=== PATIENT | female | born 1930 | race Caucasian/White ===

== ENCOUNTER 2018-02-19 07:39 | Emergency (ER) | payer MEDICARE ==
[~2018-02-19] VITALS: Ht 157.5 cm; Wt 54.4 kg
[~2018-02-19 07:39] MED LIST: ACET500; ALEN70; AMIT10; GABA300T24 PO; GABA400; HYDACE5; HYDACE5325; HYDSUL200; METTREX2.5; OXYACE5T PO; PRED5; PRED5 PO; REMICADE; TETR250; TRAM50 PO; VALA500 PO; [UNRECOGNIZED DRUG - OTHER]
[2018-02-19 08:38] LABS: BASOPHILS ABSOLUTE AUTO 0.03 K/mm3 (0.00-0.23); BASOPHILS PERCENT AUTO 0 % (0-2); EOSINOPHILS ABSOLUTE AUTO 0.03 K/mm3 (0.00-0.68); EOSINOPHILS PERCENT AUTO 0 % (0-6); Hematocrit 39.6 % (33.0-51.0); Hemoglobin 12.6 g/dL (11.5-16.0); IMMATURE GRAN ABSOLUTE AUTO 0.09 K/mm3 (0.00-0.10); IMMATURE GRAN PERCENT AUTO 1 % (0-1); LYMPHOCYTES ABSOLUTE AUTO 0.94 K/mm3 (0.84-5.20); LYMPHOCYTES PERCENT AUTO 7 % (21-46); MONOCYTES ABSOLUTE AUTO 1.14 K/mm3 (0.16-1.47); MONOCYTES PERCENT AUTO 9 % (4-13); Mean Corpuscular HGB 29.8 pg (26.0-34.0); Mean Corpuscular HGB Conc 31.8 g/dL (31.5-36.5); Mean Corpuscular Volume 94 fL (80-100); Mean Platelet Volume 10.2 fL (9.1-12.4); NEUTROPHILS ABSOLUTE AUTO 10.62 K/mm3 (1.96-9.15); NEUTROPHILS PERCENT AUTO 83 % (41-73); Platelet Count 233 K/mm3 (150-400); RDW Coefficient Variation 13.4 % (11.7-14.2); RDW Standard Deviation 46.3 fL (35.1-46.3); Red Blood Cell Count 4.23 M/mm3 (3.80-5.20); White Blood Cell Count 12.85 K/mm3 (4.00-11.30)
[2018-02-19 08:58] LABS: Albumin/Globulin Ratio 0.5 (0.8-1.8); Bilirubin, Total 0.4 mg/dL (0.1-1.0); Bun/Creatinine Ratio 12.6 (12.0-20.0); Calcium, Blood 8.3 mg/dL (8.5-10.1); Creatinine, Blood 0.95 mg/dL (0.40-1.00); Globulin, Blood 5.5 g/dL (2.2-4.0); Potassium, Blood 3.6 mmol/L (3.5-5.5); Total Protein, Blood 8.5 g/dL (6.4-8.2)
[2018-02-19] MEDS ORDERED: Mucinex600 MG PO (09:48)
[2018-02-19] MEDS ORDERED: BENZ100A PO (09:48)
[2018-02-19] MEDS ORDERED: LEVO750 PO (09:48)
[2018-02-20] MEDS ORDERED: XELJANZ5 MG PO (15:57)
[2018-02-20] MEDS ORDERED: ACET325 PO (15:58)
== END 2018-02-19 11:15 | disposition home or self-care (01) ==
LOC: ER 07:39
PROVIDERS: Emergency Medicine
DX: J40 Bronchitis, not specified as acute or chronic (principal); Z88.2 Allergy status to sulfonamides; Z79.52 Long term (current) use of systemic steroids; Z79.899 Other long term (current) drug therapy
CPT/HCPCS: 36415; 71045; 80053; 83605; 85025; 87040; 96360; 96361; 99283; J7030

== ENCOUNTER 2018-02-20 07:25 | Inpatient (IN) | payer MEDICARE ==
[~2018-02-20] VITALS: Ht 157.5 cm; Wt 55.8 kg
[~2018-02-20 07:25] MED LIST changes: +BENZ100A PO; +LEVO750 PO; +Mucinex600 MG PO
[2018-02-20 08:07] LABS: BASOPHILS ABSOLUTE AUTO 0.01 K/mm3 (0.00-0.23); BASOPHILS PERCENT AUTO 0 % (0-2); EOSINOPHILS ABSOLUTE AUTO 0.01 K/mm3 (0.00-0.68); EOSINOPHILS PERCENT AUTO 0 % (0-6); Hematocrit 36.3 % (33.0-51.0); Hemoglobin 11.6 g/dL (11.5-16.0); IMMATURE GRAN ABSOLUTE AUTO 0.06 K/mm3 (0.00-0.10); IMMATURE GRAN PERCENT AUTO 1 % (0-1); LYMPHOCYTES ABSOLUTE AUTO 0.88 K/mm3 (0.84-5.20); LYMPHOCYTES PERCENT AUTO 8 % (21-46); MONOCYTES ABSOLUTE AUTO 0.82 K/mm3 (0.16-1.47); MONOCYTES PERCENT AUTO 8 % (4-13); Mean Corpuscular HGB 29.4 pg (26.0-34.0); Mean Corpuscular Volume 92 fL (80-100); Mean Platelet Volume 10.2 fL (9.1-12.4); NEUTROPHILS ABSOLUTE AUTO 8.68 K/mm3 (1.96-9.15); NEUTROPHILS PERCENT AUTO 83 % (41-73); Platelet Count 200 K/mm3 (150-400); RDW Coefficient Variation 13.4 % (11.7-14.2); RDW Standard Deviation 45.4 fL (35.1-46.3); Red Blood Cell Count 3.94 M/mm3 (3.80-5.20); White Blood Cell Count 10.46 K/mm3 (4.00-11.30)
[2018-02-20 08:36] LABS: Anion Gap 10 mmol/L (6-16); Blood Urea Nitrogen 9 mg/dL (8-24); Bun/Creatinine Ratio 12.2 (12.0-20.0); CO2, Blood 25 mmol/L (21-32); Calcium, Blood 7.9 mg/dL (8.5-10.1); Chloride, Blood 101 mmol/L (98-108); Creatinine, Blood 0.74 mg/dL (0.40-1.00); Glomerular Filtration Rate >60 (60-); Glucose, Blood 106 mg/dL (70-99); Potassium, Blood 3.6 mmol/L (3.5-5.5); Sodium, Blood 136 mmol/L (136-145)
[2018-02-20 10:37] LABS: Influenza A Negative (NEGATIVE); Influenza B Negative (NEGATIVE)
[2018-02-20] MEDS ORDERED: XELJANZ5 MG PO (15:57)
[2018-02-20] MEDS ORDERED: ACET325 PO (15:58)
[2018-02-21 04:54] LABS: Hematocrit 35.1 % (33.0-51.0); Hemoglobin 11.4 g/dL (11.5-16.0); Mean Corpuscular HGB 29.5 pg (26.0-34.0); Mean Corpuscular HGB Conc 32.5 g/dL (31.5-36.5); Mean Corpuscular Volume 91 fL (80-100); Mean Platelet Volume 10.3 fL (9.1-12.4); Platelet Count 188 K/mm3 (150-400); RDW Coefficient Variation 13.3 % (11.7-14.2); RDW Standard Deviation 44.1 fL (35.1-46.3); Red Blood Cell Count 3.87 M/mm3 (3.80-5.20); White Blood Cell Count 8.24 K/mm3 (4.00-11.30)
[2018-02-21 05:18] LABS: Alanine Aminotransfer (ALT/SGP 27 U/L (12-78); Albumin, Blood 2.7 g/dL (3.4-5.0); Albumin/Globulin Ratio 0.5 (0.8-1.8); Alk Phos 39 U/L (50-136); Anion Gap 8 mmol/L (6-16); Aspartate Aminotrans (AST/SGOT 80 U/L (12-37); Bilirubin, Total 0.4 mg/dL (0.1-1.0); Blood Urea Nitrogen 10 mg/dL (8-24); Bun/Creatinine Ratio 15.7 (12.0-20.0); CO2, Blood 25 mmol/L (21-32); Calcium, Blood 7.9 mg/dL (8.5-10.1); Chloride, Blood 103 mmol/L (98-108); Creatinine, Blood 0.64 mg/dL (0.40-1.00); Glomerular Filtration Rate >60 (60-); Glucose, Blood 141 mg/dL (70-99); Potassium, Blood 3.2 mmol/L (3.5-5.5); Sodium, Blood 136 mmol/L (136-145); Total Protein, Blood 7.7 g/dL (6.4-8.2)
[2018-02-21] MEDS ORDERED: AMIT10 PO (16:27)
[2018-02-21] MEDS ORDERED: PRED20 (16:29)
[2018-02-21] MEDS ORDERED: ALBU90OI INH (16:30)
== END 2018-02-21 16:41 | disposition home or self-care (01) | DRG 392 ==
LOC: ER 07:25 → MEDS 10:10 → ENPENDDIS 02-21 15:55 → MEDS 02-21 16:41
PROVIDERS: Emergency Medicine; Student in an Organized Health Care Education/Training Program
DX: A08.4 Viral intestinal infection, unspecified (principal); R06.03 Acute respiratory distress; J20.9 Acute bronchitis, unspecified; M06.9 Rheumatoid arthritis, unspecified
CPT/HCPCS: 36415; 71046; 80048; 80053; 83605; 84145; 85025; 85027; 87040; 87804; 93005; 93010; 94640; 94760; 94762; 96361; 96365; 96366; 96375; 97116; 97161; 97530; 99285; G8978; G8979; J1956; J2405; J2920; J2930; J7030

== ENCOUNTER → 2018-05-09 | Outpatient (CLI) | payer MEDICARE ==
[~2018-05-09] MED LIST changes: +ACET325 PO; +ALBU90OI INH; +AMIT10 PO; +PRED20; +XELJANZ5 MG PO
[2018-05-09 14:46] LABS: Appearance, Urine Clear (Clear); Bilirubin, Urine Neg (Neg); Blood, Urine 1+ (Neg); Color, Urine Yellow (P-Yellow); Glucose Qualitative, Urine Neg (Neg); Ketones, Urine Neg (Neg); Leukocyte Esterase, Urine 1+ (Neg); Nitrite, Urine Neg (Neg); Protein, Urine 1+ (Neg); Urobilinogen, Urine NORM (Normal)
[2018-05-09 16:15] LABS: Bacteria Few /hpf; Squamous Epithelial Cells Few /hpf (Few)
== END ==
LOC: LAB EV 13:47 → LAB SHORT 13:47
PROVIDERS: Physician Assistant
DX: N39.0 Urinary tract infection, site not specified (principal)
CPT/HCPCS: 81001; 87086

== ENCOUNTER 2019-08-10 11:52 | Emergency (ER) | payer MEDICARE ==
[~2019-08-10] VITALS: Ht 152.4 cm; Wt 56.7 kg
[2019-08-10 15:20] LABS: Source, Urine Clean Catch
[2019-08-10 15:24] LABS: Bilirubin, Urine Neg (Neg); Blood, Urine 1+ (Neg); Glucose Qualitative, Urine Neg (Neg); Ketones, Urine Neg (Neg); Leukocyte Esterase, Urine 1+ (Neg); Nitrite, Urine Neg (Neg); Protein, Urine 1+ (Neg); Urobilinogen, Urine NORM (Normal)
[2019-08-10 15:34] LABS: Appearance, Urine Clear (Clear); Color, Urine Yellow (P-Yellow)
[2019-08-10 15:35] LABS: Bacteria Rare /hpf; Squamous Epithelial Cells Rare /hpf (Few)
== END 2019-08-10 16:02 | disposition home or self-care (01) ==
LOC: ER 11:52
PROVIDERS: Physician Assistant
DX: L29.9 Pruritus, unspecified (principal); F03.90 Unspecified dementia, unspecified severity, without behavioral disturbance, psychotic disturbance, mood disturbance, and anxiety; Z88.2 Allergy status to sulfonamides; Z88.5 Allergy status to narcotic agent; Z79.899 Other long term (current) drug therapy; Z87.891 Personal history of nicotine dependence
CPT/HCPCS: 81001; 87086; 90471; 90714; 99283-25

== ENCOUNTER 2019-08-23 14:07 | Emergency (ER) | payer MEDICARE ==
[~2019-08-23] VITALS: Ht 152.4 cm; Wt 54.0 kg
[2019-08-23 15:42] LABS: Source, Urine Clean Catch
[2019-08-23 15:44] LABS: Appearance, Urine Clear (Clear); Bilirubin, Urine Neg (Neg); Blood, Urine 1+ (Neg); Color, Urine Yellow (P-Yellow); Glucose Qualitative, Urine Neg (Neg); Ketones, Urine Neg (Neg); Leukocyte Esterase, Urine Neg (Neg); Nitrite, Urine Neg (Neg); Protein, Urine Neg (Neg); Urobilinogen, Urine NORM (Normal); pH, Urine 6.5 (5.0-8.0)
[2019-08-23 15:57] LABS: Bacteria Few /hpf; Squamous Epithelial Cells Rare /hpf (Few); White Blood Cells, Urine 0-2 /hpf (0-5)
[2019-08-23] MEDS ORDERED: Mupirocin22 GM (18:59)
[2019-08-23] MEDS ORDERED: Cleocin HCl300 MG PO (19:39)
== END 2019-08-23 20:05 | disposition home or self-care (01) ==
LOC: ER 14:07
PROVIDERS: Physician Assistant
DX: F63.3 Trichotillomania (principal); L03.211 Cellulitis of face; F03.90 Unspecified dementia, unspecified severity, without behavioral disturbance, psychotic disturbance, mood disturbance, and anxiety; Z87.891 Personal history of nicotine dependence; Z88.0 Allergy status to penicillin; Z88.2 Allergy status to sulfonamides; Z88.5 Allergy status to narcotic agent; Z79.899 Other long term (current) drug therapy; Z79.891 Long term (current) use of opiate analgesic; Z79.52 Long term (current) use of systemic steroids
CPT/HCPCS: 70450; 81001; 99283-25

== ENCOUNTER 2019-09-22 15:14 | Inpatient (IN) | payer MEDICARE ==
[~2019-09-22] VITALS: Ht 152.4 cm; Wt 52.6 kg
[~2019-09-22 15:14] MED LIST changes: +Cleocin HCl300 MG PO; +Mupirocin22 GM TOP; +PRED1 PO; -PRED20
[2019-09-22 16:09] LABS: BASOPHILS ABSOLUTE AUTO 0.08 K/mm3 (0.00-0.23); BASOPHILS PERCENT AUTO 1 % (0-2); EOSINOPHILS ABSOLUTE AUTO 0.47 K/mm3 (0.00-0.68); EOSINOPHILS PERCENT AUTO 3 % (0-6); Hematocrit 41.9 % (33.0-51.0); Hemoglobin 13.2 g/dL (11.5-16.0); IMMATURE GRAN ABSOLUTE AUTO 0.14 K/mm3 (0.00-0.10); IMMATURE GRAN PERCENT AUTO 1 % (0-1); LYMPHOCYTES ABSOLUTE AUTO 3.63 K/mm3 (0.84-5.20); LYMPHOCYTES PERCENT AUTO 26 % (21-46); MONOCYTES ABSOLUTE AUTO 1.02 K/mm3 (0.16-1.47); MONOCYTES PERCENT AUTO 7 % (4-13); Mean Corpuscular HGB 31.1 pg (26.0-34.0); Mean Corpuscular HGB Conc 31.5 g/dL (31.5-36.5); Mean Corpuscular Volume 99 fL (80-100); Mean Platelet Volume 10.2 fL (9.1-12.4); NEUTROPHILS ABSOLUTE AUTO 8.61 K/mm3 (1.96-9.15); NEUTROPHILS PERCENT AUTO 62 % (41-73); Platelet Count 371 K/mm3 (150-400); RDW Coefficient Variation 12.9 % (11.7-14.2); RDW Standard Deviation 46.5 fL (35.1-46.3); Red Blood Cell Count 4.25 M/mm3 (3.80-5.20); White Blood Cell Count 13.95 K/mm3 (4.00-11.30)
[2019-09-22 16:21] LABS: Alanine Aminotransfer (ALT/SGP 11 U/L (12-78); Albumin, Blood 2.7 g/dL (3.4-5.0); Albumin/Globulin Ratio 0.6 (0.8-1.8); Alk Phos 51 U/L (50-136); Anion Gap 8 mmol/L (6-16); Aspartate Aminotrans (AST/SGOT 20 U/L (12-37); Bilirubin, Total 0.3 mg/dL (0.1-1.0); Blood Urea Nitrogen 12 mg/dL (8-24); Bun/Creatinine Ratio 14.4 (12.0-20.0); CO2, Blood 24 mmol/L (21-32); Calcium, Blood 8.5 mg/dL (8.5-10.1); Chloride, Blood 109 mmol/L (98-108); Creatinine, Blood 0.84 mg/dL (0.40-1.00); Globulin, Blood 4.6 g/dL (2.2-4.0); Glomerular Filtration Rate >60 (60-); Glucose, Blood 149 mg/dL (70-99); Potassium, Blood 3.5 mmol/L (3.5-5.5); Sodium, Blood 141 mmol/L (136-145); Total Protein, Blood 7.3 g/dL (6.4-8.2)
[2019-09-22 17:33] LABS: Adenovirus F 40/41 Not Detected (NOT DETECT); Astrovirus Not Detected (NOT DETECT); Campylobacter Sp Not Detected (NOT DETECT); Cryptosporidium Not Detected (NOT DETECT); Cyclospora Cayetanensis Not Detected (NOT DETECT); E. Coli O157 Not Detected (NOT DETECT); Entamoeba Histolytica Not Detected (NOT DETECT); Enteroaggregative E. coli-EAEC Not Detected (NOT DETECT); Enteropathogenic E. coli-EPEC Not Detected (NOT DETECT); Enterotoxigenic E. coli-ETEC Not Detected (NOT DETECT); Giardia Lamblia Not Detected (NOT DETECT); Norovirus GI/GII Not Detected (NOT DETECT); Plesiomonas Shigelloides Not Detected (NOT DETECT); Rotavirus A Not Detected (NOT DETECT); Salmonella Sp Not Detected (NOT DETECT); Sapovirus Not Detected (NOT DETECT); Shiga Toxin-prod E. coli-STEC Not Detected (NOT DETECT); Shigella/Enteroin E. coli-EIEC Not Detected (NOT DETECT); Vibrio Cholerae Not Detected (NOT DETECT); Vibrio Sp Not Detected (NOT DETECT); Yersinia Enterocolitica Not Detected (NOT DETECT)
[2019-09-22] MEDS ORDERED: GABA100 PO (18:39)
--- NOTE | 2019-09-22 20:24 | NUR ---
PATIENT ARRIV ED FROM ER WITH MINIMAL COMPLAINTS OF PAIN. SOME CRAMPING IN LOWER ABDOMEN. A&O X3, DAUGHTER LETY WITH HER MOM ON ADMIT. SISTER СЕРГЕЙ WILL BE WITH MOM STARTING TOMMOROW.
--- NOTE | 2019-09-23 01:30 | NUR ---
SPOKE WITH PATIENT AND DAUGHTER ABOUT C DIFFICILE AND HOW IT IS SPREAD WELL IMPORTANCE OF GOOD HANDWASHING WITH SOAP AND WATER. EXPLAINED THAT HAND SANITIZERS ARE NOT EFFECTIVE FOR CDIFF. EXPLAINED THAT SPORES CAN SURVIVE WEEKS TO MONTHS ON SURFACES BEFORE THEY FIND A HOST. BLEACH IS NEEDED TO KILL SPORES, AND IT WAS SUGGESTED THAT A FAMILY MEMBER COULD CLEAN SURFACES IN HOME TO PREVENT REINFECTION OF PATIENT OR INFECTION OF ELDERLY SPOUSE.
[2019-09-23 04:02] LABS: BASOPHILS ABSOLUTE AUTO 0.07 K/mm3 (0.00-0.23); BASOPHILS PERCENT AUTO 0 % (0-2); EOSINOPHILS ABSOLUTE AUTO 0.48 K/mm3 (0.00-0.68); EOSINOPHILS PERCENT AUTO 3 % (0-6); Hematocrit 37.5 % (33.0-51.0); Hemoglobin 11.9 g/dL (11.5-16.0); IMMATURE GRAN ABSOLUTE AUTO 0.12 K/mm3 (0.00-0.10); IMMATURE GRAN PERCENT AUTO 1 % (0-1); LYMPHOCYTES ABSOLUTE AUTO 2.81 K/mm3 (0.84-5.20); LYMPHOCYTES PERCENT AUTO 17 % (21-46); MONOCYTES PERCENT AUTO 9 % (4-13); Mean Corpuscular HGB Conc 31.7 g/dL (31.5-36.5); Mean Corpuscular Volume 98 fL (80-100); NEUTROPHILS ABSOLUTE AUTO 11.46 K/mm3 (1.96-9.15); NEUTROPHILS PERCENT AUTO 70 % (41-73); RDW Standard Deviation 46.7 fL (35.1-46.3); Red Blood Cell Count 3.84 M/mm3 (3.80-5.20); White Blood Cell Count 16.34 K/mm3 (4.00-11.30)
[2019-09-23 04:04] LABS: Mean Platelet Volume 9.6 fL (9.1-12.4); Platelet Count 290 K/mm3 (150-400)
[2019-09-23 04:18] LABS: Anion Gap 6 mmol/L (6-16); Blood Urea Nitrogen 7 mg/dL (8-24); CO2, Blood 28 mmol/L (21-32); Calcium, Blood 7.8 mg/dL (8.5-10.1); Chloride, Blood 109 mmol/L (98-108); Creatinine, Blood 0.78 mg/dL (0.40-1.00); Glomerular Filtration Rate >60 (60-); Glucose, Blood 94 mg/dL (70-99); Potassium, Blood 3.5 mmol/L (3.5-5.5); Sodium, Blood 143 mmol/L (136-145)
--- NOTE | 2019-09-23 17:18 | NUR ---
SHIFT SUMMARY: PT HAS BEEN ALERT AND ORIENTED TO SELF AND FAMILY TODAY BUT IS CONFUSED AND FORGETFULL. SHE CONTINUES TO HAVE LOOSE STOOL AND HAS BEEN A X 1 ASSIST TO THE BSC FOR TOILETING. IV ABO INFUSED ORDERED. PT USES CALL LIGHT FOR HELP WHEN NEEDED BUT DOES NEED CUEING AND REMINDING OF WHERE SHE IS AND WHY SHE IS HERE. SHE IS RESTING IN BED WITH CALL LIGHT IN REACH.
[2019-09-24 04:45] LABS: BASOPHILS ABSOLUTE AUTO 0.07 K/mm3 (0.00-0.23); BASOPHILS PERCENT AUTO 1 % (0-2); EOSINOPHILS ABSOLUTE AUTO 0.42 K/mm3 (0.00-0.68); EOSINOPHILS PERCENT AUTO 4 % (0-6); Hematocrit 38.3 % (33.0-51.0); Hemoglobin 12.1 g/dL (11.5-16.0); IMMATURE GRAN ABSOLUTE AUTO 0.12 K/mm3 (0.00-0.10); IMMATURE GRAN PERCENT AUTO 1 % (0-1); LYMPHOCYTES ABSOLUTE AUTO 2.75 K/mm3 (0.84-5.20); LYMPHOCYTES PERCENT AUTO 23 % (21-46); MONOCYTES ABSOLUTE AUTO 0.91 K/mm3 (0.16-1.47); MONOCYTES PERCENT AUTO 8 % (4-13); Mean Corpuscular HGB Conc 31.6 g/dL (31.5-36.5); Mean Corpuscular Volume 98 fL (80-100); Mean Platelet Volume 9.7 fL (9.1-12.4); NEUTROPHILS ABSOLUTE AUTO 7.76 K/mm3 (1.96-9.15); NEUTROPHILS PERCENT AUTO 64 % (41-73); Platelet Count 345 K/mm3 (150-400); RDW Coefficient Variation 12.9 % (11.7-14.2); RDW Standard Deviation 46.4 fL (35.1-46.3); White Blood Cell Count 12.03 K/mm3 (4.00-11.30)
[2019-09-24 05:03] LABS: Anion Gap 5 mmol/L (6-16); Blood Urea Nitrogen 9 mg/dL (8-24); CO2, Blood 30 mmol/L (21-32); Calcium, Blood 8.6 mg/dL (8.5-10.1); Chloride, Blood 107 mmol/L (98-108); Glomerular Filtration Rate >60 (60-); Glucose, Blood 102 mg/dL (70-99); Potassium, Blood 3.5 mmol/L (3.5-5.5); Sodium, Blood 142 mmol/L (136-145)
--- NOTE | 2019-09-24 18:29 | NUR ---
PATIENT HAS HAD A DECREASE IN HER STOOL OUTPUT TOWARDS NOON AND FOR THE REST OF THE SHIFT. HER APPETITE HAS ALSO INCREASED TO WHERE SHE IS EATING HER LUNCH AND DINNER. SHE REPORTS FEELING BETTER THAN SHE DID THIS MORNING. CALL LIGHT WITH IN REACH.
--- NOTE | 2019-09-25 04:16 | NUR ---
SHIFT SUMMARY AOX4. LS CLEAR, DENIES SOB. NO C/O NAUSEA OR PAIN. SCABS TO FOREHEAD FROM PT SCRATCHING, SOCK OVER SCABS. CONTACT PRECAUTIONS FOR CDIFF. NUMBER OF LOOSE STOOLS DECREASING. IV IN L WRIST IS SL. BEDALARM. REFUSED BANANA FLAKES. 1 TYLENOL GIVEN @ 0. VSS ON RA. PLAN TO DC TODAY.
[2019-09-25 05:03] LABS: BASOPHILS ABSOLUTE AUTO 0.06 K/mm3 (0.00-0.23); BASOPHILS PERCENT AUTO 1 % (0-2); EOSINOPHILS ABSOLUTE AUTO 0.44 K/mm3 (0.00-0.68); EOSINOPHILS PERCENT AUTO 4 % (0-6); Hematocrit 38.7 % (33.0-51.0); Hemoglobin 12.3 g/dL (11.5-16.0); IMMATURE GRAN ABSOLUTE AUTO 0.14 K/mm3 (0.00-0.10); IMMATURE GRAN PERCENT AUTO 1 % (0-1); LYMPHOCYTES ABSOLUTE AUTO 2.35 K/mm3 (0.84-5.20); LYMPHOCYTES PERCENT AUTO 20 % (21-46); MONOCYTES ABSOLUTE AUTO 1.15 K/mm3 (0.16-1.47); MONOCYTES PERCENT AUTO 10 % (4-13); Mean Corpuscular HGB 30.4 pg (26.0-34.0); Mean Corpuscular HGB Conc 31.8 g/dL (31.5-36.5); Mean Corpuscular Volume 96 fL (80-100); Mean Platelet Volume 9.6 fL (9.1-12.4); NEUTROPHILS ABSOLUTE AUTO 7.94 K/mm3 (1.96-9.15); NEUTROPHILS PERCENT AUTO 66 % (41-73); Platelet Count 340 K/mm3 (150-400); RDW Coefficient Variation 12.7 % (11.7-14.2); RDW Standard Deviation 44.9 fL (35.1-46.3); Red Blood Cell Count 4.05 M/mm3 (3.80-5.20); White Blood Cell Count 12.08 K/mm3 (4.00-11.30)
[2019-09-25 05:21] LABS: Anion Gap 7 mmol/L (6-16); Blood Urea Nitrogen 9 mg/dL (8-24); Bun/Creatinine Ratio 11.1 (12.0-20.0); CO2, Blood 29 mmol/L (21-32); Calcium, Blood 8.3 mg/dL (8.5-10.1); Chloride, Blood 109 mmol/L (98-108); Creatinine, Blood 0.81 mg/dL (0.40-1.00); Glomerular Filtration Rate >60 (60-); Glucose, Blood 97 mg/dL (70-99); Sodium, Blood 145 mmol/L (136-145)
[2019-09-25] MEDS ORDERED: Vancocin HCl125 MG PO (09:59)
--- NOTE | 2019-09-25 13:05 | NUR ---
PT TO DISCHARGE HOME. IV REMOVED, NO SS OF INFECTION NOTED. NURSE WENT OVER DC INSTRUCTIONS WITH PATIENT. NEW MED EDUCATED ON. MEDS FAXED TO PHARMACY. PATIENT BEING TAKEN HOME BY SON. PATIENT TAKEN DOWN IN BY STAFF.
== END 2019-09-25 13:16 | disposition home or self-care (01) | DRG 373 ==
LOC: ER 15:14 → MEDS 18:39
PROVIDERS: Internal Medicine; ADMIT Internal Medicine
DX: A04.72 Enterocolitis due to Clostridium difficile, not specified as recurrent (principal); R54 Age-related physical debility; M06.9 Rheumatoid arthritis, unspecified; G31.84 Mild cognitive impairment of uncertain or unknown etiology; Z88.5 Allergy status to narcotic agent; Z88.0 Allergy status to penicillin; Z88.2 Allergy status to sulfonamides; Z87.891 Personal history of nicotine dependence; Z79.52 Long term (current) use of systemic steroids; Z79.899 Other long term (current) drug therapy
CPT/HCPCS: 0097U; 36415; 74177; 80048; 80053; 85025; 87324; 93005; 93010; 96365-59; 99285-25; A9270; A9270-GY; J7050; J7120; Q9967

== ENCOUNTER 2020-05-31 20:27 | Emergency (ER) | payer MEDICARE ==
[~2020-05-31] VITALS: Ht 147.3 cm; Wt 49.9 kg
[~2020-05-31 20:27] MED LIST changes: +GABA100 PO; +Vancocin HCl125 MG PO
[2020-05-31] MEDS ORDERED: Ativan0.5 MG PO (22:12)
== END 2020-05-31 23:37 | disposition home or self-care (01) ==
LOC: ER 20:27
DX: R44.3 Hallucinations, unspecified (principal); F03.90 Unspecified dementia, unspecified severity, without behavioral disturbance, psychotic disturbance, mood disturbance, and anxiety; Z88.0 Allergy status to penicillin; Z88.2 Allergy status to sulfonamides; Z88.5 Allergy status to narcotic agent; Z79.899 Other long term (current) drug therapy; Z87.891 Personal history of nicotine dependence
CPT/HCPCS: 99284

== ENCOUNTER 2020-10-20 15:05 | Emergency (ER) | payer MEDICARE ==
[~2020-10-20] VITALS: Ht 152.4 cm; Wt 40.8 kg
[~2020-10-20 15:05] MED LIST changes: +Ativan0.5 MG PO
[2020-10-20 15:57] LABS: BASOPHILS ABSOLUTE AUTO 0.05 K/mm3 (0.00-0.23); BASOPHILS PERCENT AUTO 1 % (0-2); EOSINOPHILS ABSOLUTE AUTO 0.38 K/mm3 (0.00-0.68); EOSINOPHILS PERCENT AUTO 4 % (0-6); Hemoglobin 13.5 g/dL (11.5-16.0); IMMATURE GRAN ABSOLUTE AUTO 0.03 K/mm3 (0.00-0.10); IMMATURE GRAN PERCENT AUTO 0 % (0-1); LYMPHOCYTES ABSOLUTE AUTO 2.97 K/mm3 (0.84-5.20); LYMPHOCYTES PERCENT AUTO 28 % (21-46); MONOCYTES ABSOLUTE AUTO 0.89 K/mm3 (0.16-1.47); MONOCYTES PERCENT AUTO 9 % (4-13); Mean Corpuscular HGB 30.5 pg (26.0-34.0); Mean Corpuscular HGB Conc 31.4 g/dL (31.5-36.5); Mean Corpuscular Volume 97 fL (80-100); Mean Platelet Volume 10.4 fL (9.1-12.4); NEUTROPHILS ABSOLUTE AUTO 6.19 K/mm3 (1.96-9.15); NEUTROPHILS PERCENT AUTO 59 % (41-73); Platelet Count 266 K/mm3 (150-400); RDW Coefficient Variation 12.1 % (11.7-14.2); RDW Standard Deviation 43.7 fL (35.1-46.3); Red Blood Cell Count 4.43 M/mm3 (3.80-5.20); White Blood Cell Count 10.51 K/mm3 (4.00-11.30)
[2020-10-20 16:19] LABS: Acetaminophen, Random 14.3 ug/mL (10.0-30.0); Alanine Aminotransfer (ALT/SGP 17 U/L (12-78); Albumin/Globulin Ratio 0.9 (0.8-1.8); Alk Phos 44 U/L (50-136); Anion Gap 5 mmol/L (6-16); Aspartate Aminotrans (AST/SGOT 19 U/L (12-37); Bilirubin, Total 0.4 mg/dL (0.1-1.0); Blood Urea Nitrogen 17 mg/dL (8-24); Bun/Creatinine Ratio 26.1 (12.0-20.0); CO2, Blood 28 mmol/L (21-32); Calcium, Blood 9.6 mg/dL (8.5-10.1); Chloride, Blood 106 mmol/L (98-108); Creatinine, Blood 0.65 mg/dL (0.40-1.00); Ethanol (Alcohol), Blood, Med <3 mg/dL; Globulin, Blood 4.3 g/dL (2.2-4.0); Glomerular Filtration Rate >60 (60-); Glucose, Blood 87 mg/dL (70-99); Salicylate <1.7 mg/dL (2.8-20.0); Sodium, Blood 139 mmol/L (136-145); Total Protein, Blood 8.3 g/dL (6.4-8.2); Troponin I <0.015 ng/mL (0.000-0.040)
[2020-10-20 20:04] LABS: Source, Urine Catheter
[2020-10-20 20:08] LABS: Appearance, Urine Clear (Clear); Bilirubin, Urine Neg (Neg); Blood, Urine 1+ (Neg); Color, Urine Yellow (P-Yellow); Glucose Qualitative, Urine Neg (Neg); Ketones, Urine Neg (Neg); Leukocyte Esterase, Urine 1+ (Neg); Nitrite, Urine Neg (Neg); Protein, Urine Neg (Neg); Specific Gravity, Urine 1.015 (1.003-1.022); Urobilinogen, Urine NORM (Normal)
[2020-10-20 20:18] LABS: Bacteria Few /hpf; Squamous Epithelial Cells Few /hpf (Few); White Blood Cells, Urine 0-2 /hpf (0-5)
[2020-10-20 20:19] LABS: U Amphetamine Screen Not Detected; U Barbituate Screen Not Detected; U Benzodiazapine Screen Not Detected; U Buprenorphine Screen Not Detected; U Cannabinoids Screen Not Detected; U Cocaine Screen Not Detected; U Methadone Screen Not Detected; U Methamphetamine Screen Not Detected; U Opiates Screen Not Detected; U Oxycodone Screen Not Detected; U Phencyclidine Screen Not Detected; U Propoxyphene Screen Not Detected
[2020-10-20] MEDS ORDERED: OLAN2.5 PO (21:29)
[2020-10-20] MEDS ORDERED: Abilify2 MG PO (21:30)
== END 2020-10-20 22:52 | disposition home or self-care (01) ==
LOC: ER 15:05
PROVIDERS: Physician Assistant
DX: F41.9 Anxiety disorder, unspecified (principal); F03.90 Unspecified dementia, unspecified severity, without behavioral disturbance, psychotic disturbance, mood disturbance, and anxiety; Z88.0 Allergy status to penicillin; Z88.2 Allergy status to sulfonamides; Z88.5 Allergy status to narcotic agent; Z79.899 Other long term (current) drug therapy; Z87.891 Personal history of nicotine dependence
CPT/HCPCS: 36415; 80053; 81001; 81025; 84484; 85025; 87086; 93005; 93010; 99283-25; G0480

== ENCOUNTER 2021-01-03 15:38 | Emergency (ER) | payer MEDICARE ==
[~2021-01-03] VITALS: Ht 152.4 cm; Wt 40.8 kg
[~2021-01-03 15:38] MED LIST changes: +Abilify2 MG PO; +OLAN2.5 PO
== END 2021-01-03 18:40 | disposition home or self-care (01) ==
LOC: ER 15:38
DX: S63.502A Unspecified sprain of left wrist, initial encounter (principal); S09.90XA Unspecified injury of head, initial encounter; Z88.0 Allergy status to penicillin; Z91.81 History of falling; Z88.2 Allergy status to sulfonamides; Z88.5 Allergy status to narcotic agent; W01.0XXA Fall on same level from slipping, tripping and stumbling without subsequent striking against object, initial encounter
CPT/HCPCS: 70450; 73110; 99284-25

== ENCOUNTER 2021-07-30 09:04 | Emergency (ER) | payer MEDICARE ==
[~2021-07-30] VITALS: Ht 152.4 cm; Wt 45.4 kg
[2021-07-30 10:15] LABS: Source, Urine Clean Catch
[2021-07-30 10:18] LABS: Albumin, Blood 3.2 g/dL (3.4-5.0); Albumin/Globulin Ratio 0.7 (0.8-1.8); Bilirubin, Total 0.4 mg/dL (0.1-1.0); Bun/Creatinine Ratio 16.2 (12.0-20.0); Calcium, Blood 8.8 mg/dL (8.5-10.1); Creatinine, Blood 0.93 mg/dL (0.40-1.00); Globulin, Blood 4.3 g/dL (2.2-4.0); Potassium, Blood 3.4 mmol/L (3.5-5.5); Total Protein, Blood 7.5 g/dL (6.4-8.2)
[2021-07-30 10:26] LABS: BASOPHILS ABSOLUTE AUTO 0.02 K/mm3 (0.00-0.23); BASOPHILS PERCENT AUTO 0 % (0-2); EOSINOPHILS ABSOLUTE AUTO 0.06 K/mm3 (0.00-0.68); EOSINOPHILS PERCENT AUTO 1 % (0-6); Hematocrit 40.8 % (33.0-51.0); Hemoglobin 13.6 g/dL (11.5-16.0); IMMATURE GRAN ABSOLUTE AUTO 0.09 K/mm3 (0.00-0.10); IMMATURE GRAN PERCENT AUTO 1 % (0-1); LYMPHOCYTES ABSOLUTE AUTO 1.31 K/mm3 (0.84-5.20); LYMPHOCYTES PERCENT AUTO 19 % (21-46); MONOCYTES ABSOLUTE AUTO 0.61 K/mm3 (0.16-1.47); MONOCYTES PERCENT AUTO 9 % (4-13); Mean Corpuscular HGB 30.8 pg (26.0-34.0); Mean Corpuscular HGB Conc 33.3 g/dL (31.5-36.5); Mean Corpuscular Volume 93 fL (80-100); NEUTROPHILS PERCENT AUTO 69 % (41-73); Platelet Count 232 K/mm3 (150-400); RDW Coefficient Variation 12.5 % (11.7-14.2); RDW Standard Deviation 42.8 fL (35.1-46.3); Red Blood Cell Count 4.41 M/mm3 (3.80-5.20); White Blood Cell Count 6.79 K/mm3 (4.00-11.30)
[2021-07-30 10:38] LABS: Bilirubin, Urine Neg (Neg); Blood, Urine 1+ (Neg); Glucose Qualitative, Urine Neg (Neg); Ketones, Urine 2+ (Neg); Leukocyte Esterase, Urine Neg (Neg); Nitrite, Urine Neg (Neg); Protein, Urine 2+ (Neg); Urobilinogen, Urine NORM (Normal)
[2021-07-30 11:12] LABS: Appearance, Urine Clear (Clear); Color, Urine Yellow (P-Yellow)
[2021-07-30 11:15] LABS: Amorphous Light (0-Heavy); Bacteria Rare /hpf; Mucus Mod (0-Heavy); Red Blood Cells, Urine 0-2 /hpf (0-2); Renal Epithelial Rare /hpf (0-Rare); Squamous Epithelial Cells Rare /hpf (Few)
[2021-07-30] MEDS ORDERED: ONDA4ODT MM ×2 (11:49→12:35)
== END 2021-07-30 13:00 | disposition home or self-care (01) ==
LOC: ER 09:04
PROVIDERS: Physician Assistant
DX: U07.1 COVID-19 (principal); Z88.0 Allergy status to penicillin; Z88.2 Allergy status to sulfonamides; Z88.5 Allergy status to narcotic agent; Z79.899 Other long term (current) drug therapy; Z87.891 Personal history of nicotine dependence
CPT/HCPCS: 80053; 81001; 83690; 85025; 93005; 93010; 96374; 99284-25; J2405; J7030; P9612

== ENCOUNTER 2021-07-31 14:53 | Inpatient (IN) | payer MEDICARE ==
[~2021-07-31] VITALS: Ht 152.4 cm; Wt 4.0 kg
[~2021-07-31 14:53] MED LIST changes: +ONDA4ODT MM
[2021-07-31 16:19] LABS: Hemoglobin 12.6 g/dL (11.5-16.0); Mean Corpuscular HGB 30.5 pg (26.0-34.0); Mean Corpuscular HGB Conc 33.2 g/dL (31.5-36.5); Mean Corpuscular Volume 92 fL (80-100); Mean Platelet Volume 9.5 fL (9.1-12.4); Platelet Count 243 K/mm3 (150-400); RDW Coefficient Variation 12.6 % (11.7-14.2); RDW Standard Deviation 42.6 fL (35.1-46.3); Red Blood Cell Count 4.13 M/mm3 (3.80-5.20); White Blood Cell Count 7.99 K/mm3 (4.00-11.30)
[2021-07-31 16:28] LABS: Anion Gap 10 mmol/L (6-16); Blood Urea Nitrogen 12 mg/dL (8-24); Bun/Creatinine Ratio 15.8 (12.0-20.0); CO2, Blood 24 mmol/L (21-32); Calcium, Blood 8.3 mg/dL (8.5-10.1); Chloride, Blood 105 mmol/L (98-108); Creatinine, Blood 0.76 mg/dL (0.40-1.00); Glomerular Filtration Rate >60 (60-); Glucose, Blood 112 mg/dL (70-99); Potassium, Blood 3.6 mmol/L (3.5-5.5); Sodium, Blood 139 mmol/L (136-145)
[2021-07-31 16:44] LABS: BAND PERCENT MAN 1 % (0-8); BASOPHILS PERCENT MAN 0 % (0-2); EOSINOPHILS ABSOLUTE MAN 0.07 K/mm3 (0.00-0.68); EOSINOPHILS PERCENT MAN 1 % (0-6); LYMPHOCYTES ABSOLUTE MAN 0.63 K/mm3 (0.84-5.20); LYMPHOCYTES PERCENT MAN 8 % (21-46); METAMYELOCYTE ABSOLUTE MAN 0.07 K/mm3 (0.00-0.00); METAMYELOCYTE PERCENT MAN 1 % (0-0); MONOCYTES ABSOLUTE MAN 0.71 K/mm3 (0.16-1.47); MONOCYTES PERCENT MAN 9 % (4-13); NEUTROPHILS ABSOLUTE MAN 6.47 K/mm3 (1.96-9.15); SEG NEUTROPHILS PERCENT MAN 80 % (41-73); TOTAL CELLS COUNTED 100
[2021-07-31 19:29] LABS: SARS-Cov-2 (COVID-19) PCR, MMC POSITIVE (NEGATIVE)
--- NOTE | 2021-07-31 20:18 | NUR ---
RECEIVED PT FROM ED, ALERT ANS ORIENTED TO SELF. PT MAKES NO COMPLAINT BUT IS A POOR HISTORIAN. PT REMAINS ON L O2. COUGH NOTED, DIM IN ALL AREAS WITH WHEEZE. PT PROVIDED LUIDS AND IS NOW RESTING. ALARM ON BED AND IN OW POSITION.
--- NOTE | 2021-07-31 23:53 | NUR ---
RECEIVED CALL FROM TELE STATING PT WAS VENTURA AT 56. CHECKED ON PT WHO WAS SLEEPING. PT WOKE UP AND MADE NO COMPLAITS AND NO CHANGE IN LOC. CHECKED WITH FINGER OX AND PT WAS 60 AND ABOVE WITH HR AND 94 WITH O2. WILL CONT TO MONITOR.
[2021-08-01 02:37] LABS: BASOPHILS ABSOLUTE AUTO 0.01 K/mm3 (0.00-0.23); BASOPHILS PERCENT AUTO 0 % (0-2); EOSINOPHILS PERCENT AUTO 0 % (0-6); Hematocrit 38.9 % (33.0-51.0); Mean Corpuscular HGB Conc 33.4 g/dL (31.5-36.5); Mean Corpuscular Volume 93 fL (80-100); Mean Platelet Volume 9.6 fL (9.1-12.4); Platelet Count 221 K/mm3 (150-400); RDW Coefficient Variation 12.7 % (11.7-14.2); RDW Standard Deviation 43.3 fL (35.1-46.3); Red Blood Cell Count 4.19 M/mm3 (3.80-5.20); White Blood Cell Count 5.55 K/mm3 (4.00-11.30)
[2021-08-01 02:43] LABS: IMMATURE GRAN ABSOLUTE AUTO 0.15 K/mm3 (0.00-0.10); IMMATURE GRAN PERCENT AUTO 3 % (0-1); LYMPHOCYTES ABSOLUTE AUTO 0.79 K/mm3 (0.84-5.20); LYMPHOCYTES PERCENT AUTO 14 % (21-46); MONOCYTES ABSOLUTE AUTO 0.23 K/mm3 (0.16-1.47); MONOCYTES PERCENT AUTO 4 % (4-13); NEUTROPHILS ABSOLUTE AUTO 4.37 K/mm3 (1.96-9.15); NEUTROPHILS PERCENT AUTO 79 % (41-73)
[2021-08-01 02:55] LABS: Alanine Aminotransfer (ALT/SGP 19 U/L (12-78); Albumin, Blood 2.7 g/dL (3.4-5.0); Albumin/Globulin Ratio 0.6 (0.8-1.8); Alk Phos 38 U/L (50-136); Anion Gap 7 mmol/L (6-16); Aspartate Aminotrans (AST/SGOT 44 U/L (12-37); Bilirubin, Total 0.2 mg/dL (0.1-1.0); Blood Urea Nitrogen 13 mg/dL (8-24); Bun/Creatinine Ratio 17.6 (12.0-20.0); CO2, Blood 25 mmol/L (21-32); Chloride, Blood 107 mmol/L (98-108); Creatinine, Blood 0.74 mg/dL (0.40-1.00); Globulin, Blood 4.3 g/dL (2.2-4.0); Glomerular Filtration Rate >60 (60-); Glucose, Blood 165 mg/dL (70-99); Potassium, Blood 4.1 mmol/L (3.5-5.5); Sodium, Blood 139 mmol/L (136-145); Troponin I 0.081 ng/mL (0.000-0.040)
--- NOTE | 2021-08-01 10:59 | NUR ---
Echocardiogram completed.
--- NOTE | 2021-08-01 18:27 | NUR ---
PT IS AO TO SELF, PT IS COVID POSITIVE, PT IS INCONTINENT,PT PULLED IV OUT, NEW IV INSERTED IN LEFT AC PT HAS DEMENTIA AND FORGETFUL, PT WORKED WITH PT THIS PM DID VERY WELL PER PHYSICAL THERAPY, GAVE UPDATE TO DAUGHTER COY ON THE PHONE, PT ON 2L VIA NSAL CANNULA. PT IS IN BED, BED IN LOW POSTION, CALL LIGHT WITHIN REACH WILL CONTINUE TO MONITOR.
--- NOTE | 2021-08-02 05:28 | NUR ---
SHIFT SUMMARY PATIENT HAD NO ACUTE CHANGES OBSERVED. AXO X 1-2. ONE ASSIST TO BSC. ON 2L O2 NC. PIV REMAINS INTACT. NEMATOLOGIST REPORTS SR 85 W/PAC. VSS/AFEBRILE. DENIES PAIN, SOB, AND N/V. CALL LIGHT IN REACH. BED IN LOWEST POSITION, WILL CONTINUE TO MONITOR UNTIL DAY SHIFT NURSE ASSUMES CARE.
--- NOTE | 2021-08-02 16:58 | NUR ---
PT AOX1 AND COOPERATIVE OF CARE. PT HAS BEEN MAINTAINING ON 2L NASAL CANULA AND ON BEDREST. PT CAN USE CALL LIGHT APPRORIATELY. PT NEEDS REPOSTIONED EVERY COUPLE HOURS. NO DISTRESS NOTED AT THIS TIME WILL CONTINUE TO MONTIOR.
--- NOTE | 2021-08-03 06:13 | NUR ---
SHIFT SUMMARY NO ACUTE CHANGES THIS SHIFT, NO C/O ANY KIND, SLEPT T/O THE NIGHT & SLEEPING AT THIS TIME, CALL LIGHT IN REACH, WILL CONT TO MONITOR UNTIL REPORT GIVEN TO DAY RN.
[2021-08-03] MEDS ORDERED: AZIT250 PO (13:51)
[2021-08-03] MEDS ORDERED: DEXA6 (13:51)
[2021-08-03] MEDS ORDERED: GUAI600T33 PO (13:52)
[2021-08-03] MEDS ORDERED: VISBIOME 112.51 EACH PO (14:01)
[2021-08-03] MEDS ORDERED: CEFP200 PO (14:04)
--- NOTE | 2021-08-03 14:29 | NUR ---
HOME O2 EVALUATION PATIENT ON 3L O2, NC IN ROOM AT REST- SAT 93. O2 REMOVED SAT 92 AFTER 5 MINUTES. PATIENT AMBULATED WITHOUT O2 SAT 83 AFTER AMBULATION. PATIENT AMBULATED WITH 3L O2 SAT 86 AFTER AMBULATION. PATIENT AMBULATED WITH 4L O2 SAT 86 AFTER AMBULATION. PATIENT AMBULATED WITH 5L O2 SAT 93 AFTER AMBULATION.
--- NOTE | 2021-08-03 15:50 | NUR ---
DISCHARGE NOTE PATIENT DISCHARGED TO HOME [facility]. PATIENT ALERT AND ORIENTED THROUGHOUT THIS SHIFT, SOMETIMES A LITTLE SLOW TO RESPOND. PATIENT UP MULTIPLE TIMES WITH 1 ASSIST. PATIENT UP IN CHAIR FOR MEALS. PATIENT WALKED SEVERAL TIMES IN THE ROOM FOR HOME RESPIRATORY EVAL. PATIENT DRESSED WITH ASSISTANCE. IV REMOVED PRIOR TO DISCHARGE. PATIENT TRANSFERED VIA WHEELCHAIR BY [facility]. PATIENT BELONGINGS WITH PATIENT UPON DISCHARGE.
== END 2021-08-03 15:49 | disposition home health service (06) | DRG 177 ==
LOC: ER 14:53 → MEDS 17:59
PROVIDERS: Student in an Organized Health Care Education/Training Program; ADMIT Internal Medicine
PROC: 8E0ZXY6 Isolation (ICD-10-PCS; principal; 2021-07-31)
PROC: 3E0333Z Introduction of Anti-inflammatory into Peripheral Vein, Percutaneous Approach (ICD-10-PCS; 2021-07-31)
PROC: XW033E5 Introduction of Remdesivir Anti-infective into Peripheral Vein, Percutaneous Approach, New Technology Group 5 (ICD-10-PCS; 2021-07-31)
DX: U07.1 COVID-19 (principal); J15.9 Unspecified bacterial pneumonia; J96.01 Acute respiratory failure with hypoxia; I21.A1 Myocardial infarction type 2; Z66 Do not resuscitate; G30.9 Alzheimer's disease, unspecified; F02.80 Dementia in other diseases classified elsewhere, unspecified severity, without behavioral disturbance, psychotic disturbance, mood disturbance, and anxiety; M06.9 Rheumatoid arthritis, unspecified; Z88.0 Allergy status to penicillin; Z88.2 Allergy status to sulfonamides; Z88.5 Allergy status to narcotic agent; Z79.899 Other long term (current) drug therapy; Z90.710 Acquired absence of both cervix and uterus; Z90.49 Acquired absence of other specified parts of digestive tract; Z87.891 Personal history of nicotine dependence
CPT/HCPCS: 36415; 71045; 80048; 80053; 84145; 84484; 85025; 85379; 86141; 93005; 93010; 93306; 94762; 96365; 96368; 96375; 97110; 97116; 97162; 97530; 99285-25; A9270; J0456; J0696; J1100; J1650; J7050; U0004

== ENCOUNTER 2021-08-05 23:21 | Emergency (ER) | payer MEDICARE ==
[~2021-08-05] VITALS: Ht 154.9 cm; Wt 49.9 kg
[~2021-08-05 23:21] MED LIST changes: +AZIT250 PO; +CEFP200 PO; +DEXA6; +GUAI600T33 PO; +VISBIOME 112.51 EACH PO
== END 2021-08-06 01:30 | disposition home or self-care (01) ==
LOC: ER 23:21
DX: U07.1 COVID-19 (principal); J12.82 Pneumonia due to coronavirus disease 2019; Z87.891 Personal history of nicotine dependence
CPT/HCPCS: 96372; 99284; A9270; J1170

== ENCOUNTER 2021-09-03 19:20 | Inpatient (IN) | payer MEDICARE ==
[~2021-09-03] VITALS: Ht 152.4 cm; Wt 40.7 kg
[2021-09-03] MEDS ORDERED: TIMDOROPSO LEFTEYE (19:42)
[2021-09-03 20:57] LABS: BASOPHILS ABSOLUTE AUTO 0.18 K/mm3 (0.00-0.23); BASOPHILS PERCENT AUTO 1 % (0-2); EOSINOPHILS ABSOLUTE AUTO 0.23 K/mm3 (0.00-0.68); EOSINOPHILS PERCENT AUTO 1 % (0-6); Hematocrit 40.3 % (33.0-51.0); Hemoglobin 12.6 g/dL (11.5-16.0); IMMATURE GRAN ABSOLUTE AUTO 1.06 K/mm3 (0.00-0.10); IMMATURE GRAN PERCENT AUTO 4 % (0-1); LYMPHOCYTES ABSOLUTE AUTO 1.11 K/mm3 (0.84-5.20); LYMPHOCYTES PERCENT AUTO 4 % (21-46); MONOCYTES ABSOLUTE AUTO 1.52 K/mm3 (0.16-1.47); MONOCYTES PERCENT AUTO 6 % (4-13); Mean Corpuscular HGB 30.4 pg (26.0-34.0); Mean Corpuscular HGB Conc 31.3 g/dL (31.5-36.5); Mean Corpuscular Volume 97 fL (80-100); Mean Platelet Volume 10.8 fL (9.1-12.4); NEUTROPHILS PERCENT AUTO 84 % (41-73); Platelet Count 644 K/mm3 (150-400); RDW Coefficient Variation 13.2 % (11.7-14.2); RDW Standard Deviation 47.1 fL (35.1-46.3); Red Blood Cell Count 4.15 M/mm3 (3.80-5.20)
[2021-09-03 21:34] LABS: Anion Gap 11 mmol/L (6-16); Blood Urea Nitrogen 12 mg/dL (8-24); CO2, Blood 25 mmol/L (21-32); Calcium, Blood 8.7 mg/dL (8.5-10.1); Chloride, Blood 102 mmol/L (98-108); Creatinine, Blood 0.55 mg/dL (0.40-1.00); Glomerular Filtration Rate >60 (60-); Glucose, Blood 164 mg/dL (70-99); Potassium, Blood 4.2 mmol/L (3.5-5.5); Sodium, Blood 138 mmol/L (136-145)
[2021-09-04 04:45] LABS: BASOPHILS ABSOLUTE AUTO 0.11 K/mm3 (0.00-0.23); BASOPHILS PERCENT AUTO 1 % (0-2); EOSINOPHILS ABSOLUTE AUTO 0.05 K/mm3 (0.00-0.68); EOSINOPHILS PERCENT AUTO 0 % (0-6); Hematocrit 30.2 % (33.0-51.0); Hemoglobin 9.4 g/dL (11.5-16.0); IMMATURE GRAN ABSOLUTE AUTO 0.87 K/mm3 (0.00-0.10); IMMATURE GRAN PERCENT AUTO 4 % (0-1); LYMPHOCYTES ABSOLUTE AUTO 1.65 K/mm3 (0.84-5.20); LYMPHOCYTES PERCENT AUTO 8 % (21-46); MONOCYTES ABSOLUTE AUTO 2.19 K/mm3 (0.16-1.47); MONOCYTES PERCENT AUTO 10 % (4-13); Mean Corpuscular HGB 30.4 pg (26.0-34.0); Mean Corpuscular HGB Conc 31.1 g/dL (31.5-36.5); Mean Corpuscular Volume 98 fL (80-100); Mean Platelet Volume 10.1 fL (9.1-12.4); NEUTROPHILS ABSOLUTE AUTO 16.83 K/mm3 (1.96-9.15); NEUTROPHILS PERCENT AUTO 78 % (41-73); Platelet Count 395 K/mm3 (150-400); RDW Coefficient Variation 13.3 % (11.7-14.2); RDW Standard Deviation 47.8 fL (35.1-46.3); Red Blood Cell Count 3.09 M/mm3 (3.80-5.20)
[2021-09-04 05:03] LABS: Alanine Aminotransfer (ALT/SGP 9 U/L (12-78); Albumin, Blood 1.3 g/dL (3.4-5.0); Albumin/Globulin Ratio 0.3 (0.8-1.8); Alk Phos 57 U/L (50-136); Anion Gap 8 mmol/L (6-16); Aspartate Aminotrans (AST/SGOT 15 U/L (12-37); Bilirubin, Total 0.3 mg/dL (0.1-1.0); Blood Urea Nitrogen 9 mg/dL (8-24); CO2, Blood 23 mmol/L (21-32); Calcium, Blood 7.7 mg/dL (8.5-10.1); Chloride, Blood 112 mmol/L (98-108); Creatinine, Blood 0.53 mg/dL (0.40-1.00); Globulin, Blood 4.6 g/dL (2.2-4.0); Glomerular Filtration Rate >60 (60-); Glucose, Blood 90 mg/dL (70-99); Potassium, Blood 3.3 mmol/L (3.5-5.5); Sodium, Blood 143 mmol/L (136-145); Total Protein, Blood 5.9 g/dL (6.4-8.2)
[2021-09-04 11:55] LABS: Adenovirus Not Detected (NOT DETECT); Coronavirus 229E Not Detected (NOT DETECT); Coronavirus HKU1 Not Detected (NOT DETECT); Coronavirus NL63 Not Detected (NOT DETECT); Coronavirus OC43 Not Detected (NOT DETECT)
[2021-09-04 11:56] LABS: Bordetella pertussis Not Detected (NOT DETECT); Chlamydophila pneumoniae Not Detected (NOT DETECT); Human Metapneumovirus Not Detected (NOT DETECT); Human Rhinovirus/Enterovirus Not Detected (NOT DETECT); Influenza A/2009-H1 Not Detected (NOT DETECT); Influenza A/H1 Not Detected (NOT DETECT); Influenza A/H3 Not Detected (NOT DETECT); Influenza B Not Detected (NOT DETECT); Mycoplasma pneumoniae Not Detected (NOT DETECT); Parainfluenza Virus 1 Not Detected (NOT DETECT); Parainfluenza Virus 2 Not Detected (NOT DETECT); Parainfluenza Virus 3 Not Detected (NOT DETECT); Parainfluenza Virus 4 Not Detected (NOT DETECT); Respiratory Syncytial Virus Not Detected (NOT DETECT); SARS-Cov-2 (COVID-19), BioFire Detected (NOT DETECT)
--- NOTE | 2021-09-04 15:00 | NUR ---
Summary of events of the day. Multiple case conferences t/o the day with pt's and bedside RN. This afternoon I met with pt's two daughters. [facility] time for ES dementia and significant decline after recovering but not returning to her baseline with a Covid infection two months ago. Pt appears comfortable and in no distress in bed. She is able to swallow and PO meds/antibiotics ordered and planned after d/c from hospital. She was admitted to acute care for sepsis due to pneumonia and has improved. Daughters have been in touch with [facility] where pt resides and they are able to accept pt back today. We were in contact with [facility] hospice to update on plan and request f/u visit to resume hospice per family wishes. raise miner coordinated transport back to [facility]. Medications and s/s management, hospice care and philosophy all reviewed with daughters and did also. Pt may do better with d/c of PO tramadol due to long half life and pt's propensity for frightening delusions and hallucinations with dementia already. I would also recommend change from dilaudid for pain to roxanol prn for pain and dyspnea/air hunger. Daughters report pt had horrible hallucinations and nightmares when dilaudid was given so no one was using it and pt was experiencing significantly more pain. I believe simplifying analgesic regime will improve untoward SE that pt is experiencing. Pt was escalating in her anxiety just prior to d/c and being back in her familiar surroundings with daughters and regular caregivers will help alleviate that. Daughters expressed great appreciation for the care their mom received during her short stay here and were very happy she was able to return home today. They also updated [facility] t/o the day.
[2021-09-04] MEDS ORDERED: LEVOFLOXAC PO (15:26)
[2021-09-04] MEDS ORDERED: MORP20L SL (15:27)
--- NOTE | 2021-09-04 15:52 | NUR ---
DISCHARGE NOTE PT IS AO. FAMILY PRESENT IN ROOM FOR DC. IV REMOVED BY THIS RN PER DOCUMENTATION. PT HAD NO BELONGINGS IN ROOM. DC INSTRUCTIONS REVIEWED WITH DAUGHTER WISAM AND MORPHINE HARD SCRIPT SENT WITH WIS[facility] FOR DIRECTOR AUTO FROM THE PHARMACY TO BRING TO [facility]. [facility] TRANSFERRED PT VIA GURNEY TO [facility]. THIS RN GAVE REPORT TO PRIMITIVO Goddard AT [facility] ON PT UPDATES AND STATUS. [facility] AT [facility] UPDATED ON PLAN AND PT STATUS. PT HAS LEFT THE BUILDING VIA [facility].
== END 2021-09-04 15:51 | disposition hospice, home (50) | DRG 871 ==
LOC: ER 19:20 → MEDS 22:13
PROVIDERS: Student in an Organized Health Care Education/Training Program; ADMIT Internal Medicine
DX: A41.9 Sepsis, unspecified organism (principal); J18.9 Pneumonia, unspecified organism; J96.21 Acute and chronic respiratory failure with hypoxia; M06.9 Rheumatoid arthritis, unspecified; Z88.0 Allergy status to penicillin; Z79.899 Other long term (current) drug therapy; Z88.2 Allergy status to sulfonamides; Z90.49 Acquired absence of other specified parts of digestive tract; Z90.710 Acquired absence of both cervix and uterus; Z86.16 Personal history of COVID-19; F03.90 Unspecified dementia, unspecified severity, without behavioral disturbance, psychotic disturbance, mood disturbance, and anxiety; Z98.890 Other specified postprocedural states; E86.0 Dehydration; Z66 Do not resuscitate
CPT/HCPCS: 0202U; 36415; 71045; 80048; 80053; 83605; 83880; 85025; 87040; 92610; 93005; 93010; 96374; 96375; 99285-25; A9270; J0696; J1650; J1956; J2060; J2405; J3480; J7030